=== PATIENT | female | born 1980 | race Caucasian/White ===

== ENCOUNTER 2019-07-05 15:18 | Emergency (ER) | payer OTHER ==
[2019-07-05 15:36] VITALS: BP 124/86; PULSE 89; TEMP 98.3; BMI 38.0
[2019-07-05] MEDS ORDERED: ACETAMINOPHEN 500 MG TABLET (FP) PO ONE (15:42)
--- NOTE | 2019-07-05 15:43 | PDOC ---
History of Present Illness - General Chief Complaint: Pain Stated Complaint: LEFT FOOT PAIN Time Seen by Provider: 07/05/19 15:27 - History of Present Illness Initial Comments: Ms. Spivey is a 39 y/o female with PMH significant for ADHD, s/p gastric sleeve , 40 lbs weight loss presenting today with two days of left foot pain. Reports that she woke up yesterday and felt left foot pain as she was standing. States that the pain is in the left ball of her foot. Denies trauma. Denies fall. Denies recent illness, fever, cough, chills, diarrhea. Denies increased exercise or activity. Denies heavy lifting. Tried taking Tylenol without relief. Not able to take motrin 2/2 gastric sleeve. Past History - Past Medical History Allergies/Adverse Reactions: Allergies Allergy/AdvReac Type Severity Reaction Status Date / Time ciprofloxacin [From Cipro] Allergy Rash Verified 07/05/19 15:20 Sulfa (Sulfonamide Allergy Rash Verified 07/05/19 15:20 Antibiotics) Home Medications: Ambulatory Orders Dextroamphetamine/Amphetamine [Adderall 10 mg Tablet] 20 mg PO DAILY 07/05/19 COPD: No - Surgical History Gastric Stapling: Yes (SLEEVE) - Immunization History Immunization Up to Date: Yes - Psycho Social/Smoking Cessation Hx Smoking Status: No Smoking History: Never smoked Have you smoked in the past 12 months: No Number of Cigarettes Smoked Daily: 0 Information on smoking cessation initiated: No Hx Alcohol Use: No Drug/Substance Use Hx: No Review of Systems - Review of Systems Comments:: GENERAL/CONSTITUTIONAL: No fever or chills. No weakness._ HEAD, EYES, EARS, NOSE AND THROAT: No change in vision. No change in hearing. No sore throat._ CARDIOVASCULAR: No chest pain or shortness of breath_ RESPIRATORY: Denies cough, hemoptysis_ GASTROINTESTINAL: No nausea, vomiting, diarrhea or constipation._ GENITOURINARY: No dysuria, frequency, or change in urination._ MUSCULOSKELETAL: Reports left forefoot pain at the ball of the foot. No neck or back pain._ SKIN: No rash_ NEUROLOGIC: No headache, vertigo, loss of consciousness, or change in strength/ sensation._ HEMATOLOGIC/LYMPHATIC: No anemia, easy bleeding, or history of blood clots._ ALLERGIC/IMMUNOLOGIC: No hives or skin allergy._ *Physical Exam - Vital Signs Last Vital Signs Temp Pulse Resp BP Pulse Ox 98.3 F 89 20 124/86 96 07/05/19 15:19 07/05/19 15:19 07/05/19 15:19 07/05/19 15:19 07/05/19 15:19 - Physical Exam Comments: GENERAL: Awake, alert, and oriented to person/place/time, in no acute distress_ HEAD: No signs of trauma, normocephalic, atraumatic _ EYES: PERRLA, EOMI, sclera anicteric, conjunctiva clear_ ENT: Hearing grossly normal, nares patent, oropharynx clear without exudates. No uvular deviation. Moist mucosa_ NECK: Normal ROM, supple, no lymphadenopathy, JVD, or masses_ LUNGS: No distress, speaks in full sentences, clear to auscultation bilaterally _ HEART: Regular rate and rhythm, normal S1 and S2, no murmurs appreciated, peripheral pulses normal and equal bilaterally._ ABDOMEN: Soft, nontender, normoactive bowel sounds. No guarding, no rebound. No masses_ EXTREMITIES: Normal inspection, Normal range of motion, no edema. No clubbing or cyanosis_ LLE: Inspection: No erythema or ecchymosis. No tenderness, no obvious abnormalities, no open wounds. Compartments soft and compressible, pain within proportion, no pain to passive stretch Knee stable to anterior/posterior drawer and varus/valgus stress Sensation: Intact bilaterally Motor: 5/5 EHL, 5/5 FHL, 5/5 TA, 5/5GS, 5/5 Quad, 5/5 Ham Vascular: 2+ DP/PT, all toes BCR <2 sec NEUROLOGICAL: Cranial nerves II through XII grossly intact. Normal speech, normal gait, no focal sensorimotor deficits _ SKIN: Warm, Dry, normal turgor, no rashes or lesions noted_ ED Treatment Course - RADIOLOGY Radiology Studies Ordered: Category Date Time Status ANKLE & FOOT-LEFT* [RAD] Stat Radiology 07/05/19 15:40 Ordered Medical Decision Making - Medical Decision Making 07/05/19 15:53 39F presenting with 2 days of left forefoot pain. -XR left foot/ankle -Tylenol for pain relief 07/05/19 16:19 XR shows no acute fracture or subluxation. Pt reassessed, Tylenol has not helped much. Plan to d/c with symptomatic treatment and f/u podiatry and orthopedics. Discharge - Discharge Information Problems reviewed: Yes Clinical Impression/Diagnosis: Left foot pain Condition: Stable Disposition: HOME - Admission No - Follow up/Referral Referrals: Jimbo Suero DO [Staff Physician] - Rip Guajardo DPM [Staff Physician] - - Patient Discharge Instructions Additional Instructions: Please rest, ice, compress (with CALLIE bandage wrap) your left foot for pain relief. Please use Tylenol as needed for pain relief (follow instructions on the package ). If the pain does not improve, please make an appointment with orthopedics and/ or podiatry (both referrals provided here). If you experience any new, worsening, or concerning symptoms, please return to the emergency department. - Post Discharge Activity
[2019-07-05] MEDS ORDERED: ACETAMINOPHEN 325 MG TABLET (FP) ONE (15:46)
--- NOTE | 2019-07-05 16:01 | PDOC ---
Attending Attestation - Resident Resident Name: Willi Beasley - ED Attending Attestation I have performed the following: I have examined & evaluated the patient, The case was reviewed & discussed with the resident, I agree w/resident's findings & plan - HPI HPI: 07/05/19 15:59 39-year-old female with gastric bypass surgery last month and successful weight loss now presents with second day of atraumatic left foot pain. Patient was in her usual state of health, awoke yesterday morning and upon standing had discomfort to the distal aspect of her left foot, deep pain only with weightbearing and localized to that region. No motor or sensory deficit, no injury or strain, no swelling or redness or fevers or chills, no history of similar pain. Took Tylenol with minimal relief, presents for evaluation. Did not wear any new shoes or partake in any strenuous activity. - Physicial Exam PE: 07/05/19 16:00 Vital signs normal Left lower extremity: No calf swelling or tenderness, no edema. No discoloration or warmth, no bony tenderness or deformity or step-off. Neurovascularly intact throughout with full range of motion of ankle and toes, there is reproducible tenderness in the soft tissues between the third and fourth and fourth and fifth metatarsals without palpable abnormality. - Medical Decision Making 07/05/19 16:01 39-year-old female with history of obesity presents with atraumatic left foot pain and no evidence of infectious or vascular or skeletal process. Likely foot strain, neurovascular intact. Left foot x-ray Cannot take NSAIDs secondary to recent procedure, recommend ice and Tylenol and activity as tolerated Understands return criteria
== END 2019-07-05 16:56 | disposition home or self-care (01) ==
LOC: FER 15:18
DX: M79.672 Pain in left foot (principal); F90.9 Attention-deficit hyperactivity disorder, unspecified type; Z98.84 Bariatric surgery status; Z88.8 Allergy status to other drugs, medicaments and biological substances; Z88.2 Allergy status to sulfonamides
CPT/HCPCS: 73610-TC-LT-FY; 73630-TC-LT; 99281-25

== ENCOUNTER 2020-07-10 22:16 | Emergency (ER) | payer OTHER ==
[2020-07-10 22:23] VITALS: BMI 31.7
[2020-07-11 01:11] VITALS: BP 119/84; PULSE 58; TEMP 97.9
== END 2020-07-11 01:14 | disposition home or self-care (01) ==
LOC: FER 22:16
DX: M79.2 Neuralgia and neuritis, unspecified (principal); R51.9 Headache, unspecified
CPT/HCPCS: 70450-TC; 99284-25

== ENCOUNTER 2022-11-29 23:33 | Emergency (ER) | payer OTHER ==
[2022-11-29 23:45] VITALS: BP 134/94; PULSE 82; RESP 16; TEMP 98.5; BMI 31.7
[2022-11-30] MEDS ORDERED: IBUPROFEN 600 MG TABLET (FP) PO ONE ×2 (00:31→00:37)
== END 2022-11-30 00:38 | disposition home or self-care (01) ==
LOC: FER 23:33
DX: M79.671 Pain in right foot (principal)
CPT/HCPCS: 73610-TC-RT-FY; 73630-TC-RT-FY; 99283-25

== ENCOUNTER 2022-12-21 11:57 | Emergency (ER) | payer OTHER ==
[2022-12-21 12:15] VITALS: BP 139/98; PULSE 103; RESP 20; TEMP 98.3; BMI 31.0
== END 2022-12-21 12:47 | disposition home or self-care (01) ==
LOC: FER 11:57
DX: T81.31XA Disruption of external operation (surgical) wound, not elsewhere classified, initial encounter (principal)
CPT/HCPCS: 99282-25

== ENCOUNTER 2023-10-29 16:50 | Emergency (ER) | payer OTHER ==
[2023-10-29 17:53] VITALS: BP 120/64; PULSE 84; RESP 20; TEMP 98.7; BMI 30.8
[2023-10-29] MEDS ORDERED: KETOROLAC TROMETHAMINE 30 MG/1 ML VIAL ONE (18:20)
[2023-10-29] MEDS ORDERED: predniSONE 20 MG TABLET (UD) ONE (18:20)
[2023-10-29] MEDS ORDERED: predniSONE 10 MG TABLET (UD) ONE (18:21)
[2023-10-29] MEDS: predniSONE 20 MG TABLET (UD) PO ONE (18:30)
[2023-10-29] MEDS: KETOROLAC TROMETHAMINE 15 MG/ML VIAL IM ONE (18:30)
== END 2023-10-29 19:00 | disposition home or self-care (01) ==
LOC: FER 16:50
PROC: 3E0233Z Introduction of Anti-inflammatory into Muscle, Percutaneous Approach (ICD-10-PCS; principal; 2023-10-29)
DX: M25.511 Pain in right shoulder (principal); R20.0 Anesthesia of skin
CPT/HCPCS: 99284-25

== ENCOUNTER 2023-11-16 04:31 | Emergency (ER) | payer OTHER ==
[2023-11-16 04:42] VITALS: BP 142/91; PULSE 63; RESP 16; TEMP 97.8; BMI 30.7
[2023-11-16] MEDS ORDERED: DEXAMETHASONE SOD PHOSPHATE 10 MG/1 ML VIAL ONE (05:01)
[2023-11-16] MEDS: DEXAMETHASONE SOD PHOSPHATE 10 MG/1 ML VIAL IM ONE (05:04)
== END 2023-11-16 05:10 | disposition home or self-care (01) ==
LOC: FER 04:31
PROC: 3E023GC Introduction of Other Therapeutic Substance into Muscle, Percutaneous Approach (ICD-10-PCS; principal; 2023-11-16)
DX: R21 Rash and other nonspecific skin eruption (principal); T78.1XXA Other adverse food reactions, not elsewhere classified, initial encounter
CPT/HCPCS: 99284-25; J1100

== ENCOUNTER 2023-11-24 04:24 | Day surgery (SDC) | payer OTHER ==
[2023-11-23 11:23] VITALS: BMI 31.8
[2023-11-24] MEDS ORDERED: LIDOCAINE HCL/PF 1% SDV 5ML VIAL ONE ×2 (07:08→07:30)
[2023-11-24] MEDS ORDERED: DEXAMETHASONE SOD PHOSPHATE 10 MG/1 ML VIAL ONE (07:09)
[2023-11-24] MEDS: DEXAMETHASONE SOD PHOSPHATE 10 MG/1 ML VIAL IVPUSH ONE ×2 (08:51→08:55)
[2023-11-24] MEDS: LIDOCAINE HCL 1% PRESERVATIVE FREE - 30ML VIAL IJ ONE ×2 (08:51→08:55)
[2023-11-24] MEDS: IOHEXOL 180 MG/1 ML ML IJ ONE ×2 (08:52→08:55)
[2023-11-24 09:43] VITALS: BP 117/72; PULSE 74; RESP 20
[2023-11-24 09:48] VITALS: TEMP 97.4
[2023-11-24] MEDS ORDERED: ACETAMINOPHEN 500 MG TABLET (FP) PO PRN (13:07)
== END 2023-11-24 09:48 | disposition home or self-care (01) ==
LOC: JASU-SURG 04:24
PROVIDERS: ATTEND Pain Medicine Pain Medicine
PROC: 3E0R3BZ Introduction of Anesthetic Agent into Spinal Canal, Percutaneous Approach (ICD-10-PCS; 2023-11-24)
PROC: 3E0R33Z Introduction of Anti-inflammatory into Spinal Canal, Percutaneous Approach (ICD-10-PCS; principal; 2023-11-24 08:30)
DX: M54.12 Radiculopathy, cervical region (principal)
CPT/HCPCS: 76000-TC-FY; 81025; J1100

== ENCOUNTER 2025-01-26 05:33 | Day surgery (SDC) | payer OTHER ==
[2025-01-26] MEDS ORDERED: BUPIVACAINE HCL/PF 0.25% (2.5MG/ML) 10 ML VIAL ONE (07:33)
[2025-01-26] MEDS ORDERED: LIDOCAINE HCL/PF 2% SDV 5ML VIAL ONE (07:33)
[2025-01-26] MEDS ORDERED: LIDOCAINE HCL/PF 1% SDV 5ML VIAL ONE (07:34)
[2025-01-26] MEDS ORDERED: BUPIVACAINE HCL/PF 0.5% (5MG/ML) 10 ML VIAL ONE (07:34)
[2025-01-26] MEDS ORDERED: BUPIVACAINE HCL/PF 0.75% 10 ML VIAL ONE (07:34)
[2025-01-26 08:04] VITALS: TEMP 97.4
[2025-01-26] MEDS ORDERED: DEXAMETHASONE SOD PHOSPHATE 10 MG/1 ML VIAL ONE (08:58)
[2025-01-26] MEDS ORDERED: ACETAMINOPHEN 500 MG TABLET (FP) PO PRN (08:59)
[2025-01-26 10:04] VITALS: BP 114/58; PULSE 50; RESP 18
== END 2025-01-26 10:15 | disposition home or self-care (01) ==
LOC: JASU-SURG 05:33
PROVIDERS: ATTEND Pain Medicine Pain Medicine
PROC: 3E0R3BZ Introduction of Anesthetic Agent into Spinal Canal, Percutaneous Approach (ICD-10-PCS; 2025-01-26)
PROC: 3E0R33Z Introduction of Anti-inflammatory into Spinal Canal, Percutaneous Approach (ICD-10-PCS; principal; 2025-01-26 09:15)
DX: M54.12 Radiculopathy, cervical region (principal)
CPT/HCPCS: 76000-TC-FY; 81025; J1100